=== PATIENT | female | born 1995 | race Caucasian/White ===

== ENCOUNTER → 2020-08-16 16:17 | Outpatient (CLI) | payer BC ==
[2015-03-14 08:16] VITALS: BMI 24.1
[~2020-08-16 16:17] MED LIST: VENTOLIN HFA18 GM INH; VESTURA 3 MG-01 EACH PO; ZYRTEC10 MG PO
== END | disposition home or self-care (01) ==
LOC: D.LABREF 16:17
PROVIDERS: ATTEND Obstetrics & Gynecology
DX: O02.1 Missed abortion (principal)